=== PATIENT | male | born 1965 | race Asian ===

== ENCOUNTER 2016-06-15 20:46 | Emergency (ER) | payer OTHER ==
[2016-06-15] MEDS ORDERED: ATORVASTATIN CA20 M1 PO (21:04)
[2016-06-15] MEDS ORDERED: AMLODIPINE BESY10 M1 PO (21:04)
[2016-06-15] MEDS ORDERED: TRIAMTERENE-HC1 EAC3 PO (21:04)
--- NOTE | 2016-06-15 21:11 | ED GENERAL ADULT ---
History of Present Illness General Chief Complaint: General Adult Stated Complaint: "FEVER, @HOME TEMP 99.6,HEADACHE,DIARRHEA" Source: patient Exam Limitations: no limitations Vital Signs & Intake/Output Vital Signs & Intake/Output Vital Signs Date Time Temp Pulse Resp B/P Pulse O2 O2 Flow FiO2 Ox Delivery Rate 06/15 2226 98.8 95 18 118/85 95 Room Air 06/157 101.1 06/157 Room Air 06/15 2050 101.1 134 18 131/89 94 Room Air Allergies Coded Allergies: No Known Allergies (06/15/16) Reconcile Medications Amlodipine Besylate 10 MG TABLET 1 TAB PO DAILY BP (Reported) Atorvastatin Calcium 20 MG TABLET 1 TAB PO DAILY CHOLESTEROL (Reported) Azithromycin (Zithromax) 500 MG TABLET 1 TAB PO DAILY PNEUMONIA Benzonatate (Tessalon Perle) 100 MG CAPSULE 1 CAP PO TID PRN COUGH Robitussin AC (Guaifenesin-Codeine Syrup) 200 MG-20 MG/10 ML LIQUID 10 ML PO TID PRN COUGH Triamterene/Hydrochlorothiazid (Triamterene-Hctz 37.5-25 MG Cp) 37.5 MG-25 MG CAPSULE 1 CAP PO DAILY BP (Reported) Triage Note: TRIAGE; PT TO ED WITH DIARRHEA, FEVER, AND NOW A COUGH AND HEADACHE SINCE THURSDAY. STATES HE WENT TO HIS PCP ON THURSDAY AND TOLD HE HAS A VIRUS. STATES FELT WORSE DOAY. TEMP IN TRIAGE 101.1. HAS BEEN TAKING TYLENOL AND MOTRIN AT HOME. Triage Nurses Notes Reviewed? yes Onset: Abrupt Duration: constant Timing: recent history Severity: moderate Severity Numbers: 5 HPI: Patient is a 51-year-old male with a past medical history of hyperlipidemia and hypertension who presents emergency room stating that 5 days ago patient had a gradual onset of diarrhea and generalized weakness and fatigue which patient followed up with primary care doctor earlier this week was diagnosed with gastritis and "stomach bug". Patient has been taking Motrin for fevers which has temporary resolved however fever and chills continuously occur and patient has developed a nonproductive persistent cough in last 24 hours and worsening weakness malaise and chills. Denies any positive sick contacts. States that the diarrhea has resolved and patient had normal stool production today. Denies any ear pain sore throat chest pain shortness of breath nausea vomiting abdominal pain. Last dose of Motrin was earlier today no Tylenol today (FAVIOLA LEHMAN) Past History Travel History Traveled to [place] past 21 day No Medical History Any Pertinent Medical History? see below for history Cardiovascular: hypertension, hyperlipidemia Surgical History Surgical History: non-contributory Psychosocial History What is your primary language Laotian Tobacco Use: Never used Family History Hx Contributory? No (FAVIOLA LEHMAN) Review of Systems Review of Systems Constitutional: Reports: see HPI, chills, fever. EENTM: Reports: no symptoms. Respiratory: Reports: see HPI, cough. Cardiovascular: Reports: no symptoms. GI: Reports: see HPI. Genitourinary: Reports: no symptoms. Musculoskeletal: Reports: see HPI. Skin: Reports: no symptoms. Neurological/Psychological: Reports: no symptoms. Hematologic/Endocrine: Reports: no symptoms. Immunologic/Allergic: Reports: no symptoms. All Other Systems: Reviewed and Negative (FAVIOLA LEHMAN) Physical Exam Physical Exam General Appearance: no apparent distress, alert, comfortable Comments: Well-developed well-nourished person in no acute distress HEENT: Normal EENT exam, extraocular motion intact, no nystagmus. Pupils equally round and reactive to light and accommodation. Nose is atraumatic. External auditory canal and Tympanic membranes clear. Pharynx normal. No swelling or edema. Neck: Supple, no lymphadenopathy, normal range of motion without pain or tenderness Back: Nontender, no CVA tenderness. Cardiovascular: Regular rate and rhythms no murmurs rubs or gallops, normal JVP Respiratory: No respiratory distress, crackles noted to posterior right lung field Abdomen: Soft, nontender nondistended, no appreciable organomegaly. Normal bowel sounds. No ascites Extremity: No edema, no calf tenderness to palpation, normal and equal pulses. Neuro: Alert oriented x3, motor sensory normal, Skin: No appreciable rash on exposed skin, skin is warm and dry. Psych: Mood and affect is normal, memory and judgment is normal. Core Measures ACS in differential dx? No CVA/TIA Diagnosis: No Severe Sepsis Present: No Septic Shock Present: No (FAVIOLA LEHMAN) Progress Differential Diagnoses I considered the following diagnoses in my evaluation of the patient: [URI, bronchitis, pneumonia, sepsis, appendicitis, meningitis, sinusitis, pharyngitis, otitis media, otitis externa,] Plan of Care: Orders Procedure Date/time Status RAPID VIRAL INFLUENZA A 06/15 2141 Complete Patient currently is in no apparent distress and WILL BE TREATED for concerns of community-acquired pneumonia. Patient is able tolerate by mouth was alert and oriented Patient and family member agree with disposition plan and felt comfortable to follow-up with primary care doctor on Thursday since tomorrow is a holiday. Oxygen saturation was 98% room air no respiratory distress (FAVIOLA LEHMAN) Initial ED EKG: none (FAVIOLA LEHMAN) Departure Departure Disposition: HOME OR SELF CARE Condition: Stable Clinical Impression Primary Impression: Pneumonia Referrals: WALTER PEARL (PCP/Family) Additional Instructions: As discussed begin [id number] Motrin and INTERchange with Tylenol for fevers. Begin drinking plenty of water for hydration. Follow-up with your primary care doctor ON Thursday for recheck of symptoms. Begin the prescription for Tessalon Perles and Robitussin with codeine for cough and begin the prescription of azithromycin as directed for the full course. If symptoms worsen return to emergency room. Perceptions are waiting at [facility] pharmacy. Departure Forms: Customer Survey General Discharge Information Prescriptions: Current Visit Scripts Azithromycin (Zithromax) 1 TAB PO DAILY #5 TAB Benzonatate (Tessalon Perle) 1 CAP PO TID PRN COUGH #21 CAP Robitussin AC (Guaifenesin-Codeine Syrup) 10 ML PO TID PRN COUGH #120 (FAVIOLA LEHMAN) PA/[employer]ER BENCH Co-Sign Statement Statement: ED Attending supervision documentation- [] I saw and evaluated the patient. I have also reviewed all the pertinent lab results and diagnostic results. I agree with the findings and the plan of care as documented in the PA's/TOOL MA[employer]ER BENCH's documentation. [X] I have reviewed the ED Record and agree with the PA's/TOOL MA[employer] BENCH's documentation. [] Additions or exceptions (if any) to the PAs/TOOL MA[employer]ER BENCH's note and plan are summarized below: [] (EDWIGE GONCALVES,YANNA Parker) Critical Care Note Critical Care Note Critical Care Time: non-applicable (FAVIOLA LEHMAN)
[2016-06-15] MEDS ORDERED: TESSALON PERLE100 M1 PO (21:48)
[2016-06-15] MEDS ORDERED: ZITHROMAX500 M2 PO (21:48)
[2016-06-15] MEDS ORDERED: GUAIFENESIN-COD10 ML PO (21:48)
[2016-06-15 22:27] VITALS: BP 118/85
== END 2016-06-15 22:28 ==
LOC: ERH 20:46
DX: J18.9 Pneumonia, unspecified organism (principal)
CPT/HCPCS: 87804; 87804-59